=== PATIENT | female | born 1980 | race Caucasian/White ===

== ENCOUNTER 2024-07-22 06:55 | Outpatient (CLI) | payer BC, SELFPAY ==
--- NOTE | ~2024-07-22 | MR_ITS ---
MRI of the cervical spine Clinical History: Cervicalgia Technique: Axial T2-weighted and gradient images, and sagittal T1-weighted, T2-weighted, and STIR valeria ges were acquired. Findings: There is no fracture or subluxation of the cervical spine. Vertebral bodies maintain normal height and alignment. There is a 1.5 x 1.0 x 1.4 cm T2 hyperintense lesion within the T2 vertebral b kelly to the left side. No other bone marrow signal abnormality seen. No significant disc bulge or herniation seen at any cervical level. No spinal canal stenosis or cord compression identified in the cervical spine. There is multilevel mild facet arthropathy throughout t he cervical spine. There is left neural foraminal narrowing at C3-C4 with possible minimal right neur al foraminal narrowing at this level. There is bilateral neural foraminal narrowing, left worse than right, at C4-C5. No abnormal signal seen in the spinal cord. Paravertebral soft tissues are unremarkable. Impression: Mild degenerative spondylosis, as above. 1.5 x 1.0 x 1.4 cm lesion within the left side of the C2 vertebral body, as detailed above. Statistic ally, this is most likely mildly atypical hemangioma given relative lack of T1 hyperintensity. Noncon trast CT scan advised to further assess and attempt to confirm intraosseous hemangioma. Reviewed, dictated and finalized at location . Impression: Mild degenerative spondylosis, as above. 1.5 x 1.0 x 1.4 cm lesion within the left side of the C2 vertebral body, as det myron above. Statistically, this is most likely mildly atypical hemangioma give n relative lack of T1 hyperintensity. Noncontrast CT scan advised to further as sess and attempt to confirm intraosseous hemangioma.
--- NOTE | ~2024-07-22 | MR_ITS ---
MRI of the right knee Clinical history: Pain Technique: Coronal proton density and proton density-weighted images, sagittal proton-density and T2 fat-sat images, and axial proton-density fat-saturated images were acquired. Findings: Anterior and posterior cruciate ligaments are intact. Medial collateral ligament and the la teral collateral ligament complex are intact. Popliteus tendon is intact. There is probable oblique tear of the posterior horn of the lateral meniscus. No medial meniscal tear seen. There is high-grade chondromalacia the patellar apex extending to the medial facet. There is extensiv e high-grade chondromalacia the femoral trochlea. There is patchy moderate chondromalacia of the medi al femoral condyle and of the medial tibial plateau towards the joint line. There is mild chondral ma lacia the lateral compartment. Minimal patellar osteophytes are present. Small probable enchondroma p resent at the medial aspect of the distal femur. Extensor mechanism is intact. No joint effusion. Small Mccray cyst present. Impression: Oblique tear of the posterior horn of the lateral meniscus. Mild to moderate degenerative change at the patellofemoral compartment. Additional mild degenerative changes, as above. Small Mccray's cyst. Reviewed, dictated and finalized at location . Impression: Oblique tear of the posterior horn of the lateral meniscus. Mild to moderate degenerative change at the patellofemoral compartment. Additio nal mild degenerative changes, as above. Small Mccray's cyst.
== END 2024-07-22 06:56 | disposition home or self-care (01) ==
PROVIDERS: PCP Nurse Practitioner Family; Visit Provider Orthopaedic Surgery
DX: S83.281A Other tear of lateral meniscus, current injury, right knee, initial encounter (principal); M17.11 Unilateral primary osteoarthritis, right knee; M71.21 Synovial cyst of popliteal space [Baker], right knee; M47.892 Other spondylosis, cervical region; X58.XXXA Exposure to other specified factors, initial encounter
CPT/HCPCS: 72141; 73721

== ENCOUNTER 2025-01-19 12:40 | Outpatient (CLI) | payer BC, SELFPAY ==
--- NOTE | ~2025-01-19 | CT_ITS ---
EXAMINATION: CT cervical spine wo con DATE: 01/19/2025 13:02 INDICATION: Cervical vertebral dysplasia. Neck pain. TECHNIQUE: Computed tomography (CT) of the cervical spine was performed without intravenous contrast. Automated exposure control and iterative reconstruction technique were employed. The dose-length product was 235.14 mGy-cm. COMPARISON: Cervical spine MRI 07/22/2024 FINDINGS: There is 2 mm anterolisthesis of C7 on T1. Vertebral body heights are normal. There is a hemangioma in the T2 vertebral body. There is severely decreased disc height at C2-C3 and mildly decreased disc height at C4-C5, C5-C6, C6-C7, and C7-T1. The following disc levels are specifically discussed: C2-C3: There is severe bilateral uncovertebral joint osteoarthritis. There is severe right and moderate left facet joint osteoarthritis. There is mild bilateral neural foraminal stenosis. There is mild central canal stenosis. C3-C4: There is mild right and moderate left uncovertebral joint osteoarthritis. There is severe bilateral facet joint osteoarthritis. There is mild left neural foraminal stenosis. There is no central canal stenosis. C4-C5: There is mild bilateral uncovertebral joint osteoarthritis. There is severe bilateral facet joint osteoarthritis. There is mild left neural foraminal stenosis. There is mild central canal stenosis. C5-C6: There is no uncovertebral joint osteoarthritis. There is severe bilateral facet joint osteoarthritis. There is no neural foraminal stenosis. There is no central canal stenosis. C6-C7: There is no uncovertebral joint osteoarthritis. There is severe right and mild left facet joint osteoarthritis. There is no neural foraminal stenosis. There is no central canal stenosis. C7-T1: There is no uncovertebral joint osteoarthritis. There is severe bilateral facet joint osteoarthritis. There is mild bilateral neural foraminal stenosis. There is no central canal stenosis. IMPRESSION: 1. Moderate cervical spondylosis. 2. Hemangioma in the T2 vertebral body correlating with the MRI finding. Reviewed, dictated and finalized at location E.
== END 2025-01-19 12:41 | disposition home or self-care (01) ==
LOC: MICIMG 12:41
PROVIDERS: PCP Nurse Practitioner Family; Visit Provider Nurse Practitioner Family
DX: M47.812 Spondylosis without myelopathy or radiculopathy, cervical region (principal); D18.09 Hemangioma of other sites; Q76.49 Other congenital malformations of spine, not associated with scoliosis
CPT/HCPCS: 72125